=== PATIENT | female | born 1985 | race Asian ===

== ENCOUNTER 2020-11-19 21:03 | Emergency (ER) | payer MEDICAID ==
--- NOTE | 2020-11-19 21:11 | EDM.PDOC ---
ED HPI GENERAL MEDICAL PROBLEM - General Stated Complaint: MEDICAL VIA NORTH Time Seen by Provider: 11/19/20 21:03 Source of Information: Reports: EMS History Limitations: Reports: Altered Mental Status, Physical Impairment - History of Present Illness INITIAL COMMENTS - FREE TEXT/NARRATIVE: 35-year-old female with unknown medical history, presents with according to family 2 days of increased fatigue and unresponsiveness. She was brought in by EMS tonight noncommunicative but responds to voice and pain. She struggles to keep her eyes closed when you try to open her eyes, and she pushes your hands away when removing a hernia belt that she is wearing. She will not attempt to answer questions however. She looks dry but her vitals are stable, O2 sats are normal. EMS checked glucose in route and was 103. Onset: Unknown/Unsure (Apparently she has been slowly getting less responsive for the last several days) Generalized Pain Score (Numeric/FACES): 6 - Related Data Allergies Allergy/AdvReac Type Severity Reaction Status Date / Time No Known Allergies Allergy Verified 11/19/20 22:09 Home Meds: Home Meds Letrozole 2.5 mg PO DAILY 11/19/20 [History] estradioL [Estradiol] 2 mg PO DAILY 11/19/20 [History] metFORMIN [Glucophage] 850 mg PO ASDIRECTED 11/19/20 [History] ED ROS GENERAL - Review of Systems Review Of Systems: See Below (Patient is a cooperative and responsive to get a review of systems) ED EXAM, GENERAL - Physical Exam Exam: See Below Exam Limited By: Physical Impairment General Appearance: Lethargic Eye Exam: Bilateral Eye: PERRL (Pupils are small but equal and reactive) Head: Atraumatic Neck: Supple Respiratory/Chest: Lungs Clear Cardiovascular: Regular Rate, Rhythm. No: Tachycardia GI/Abdominal: Soft, Other (Difficult to say if she is got tenderness to palpation but she does not have any guarding voluntary or involuntary, no signs of trauma to the abdomen or back) Extremities: Normal Inspection Neurological: Inattentive, Unresponsive Skin Exam: Warm, Dry Course - Vital Signs Last Recorded V/S: Last Vital Signs Temp 99.4 F 11/19/20 23:16 Pulse 117 H 11/19/20 23:16 Resp 20 11/19/20 23:16 BP 122/59 L 11/19/20 23:16 Pulse Ox 93 L 11/19/20 23:16 - Orders/Labs/Meds Orders: Active Orders 24 hr Category Date Time Status CORONAVIRUS COVID-19 RALPH [MOLEC] Routine Lab 11/19/20 22:57 Received Labs: Laboratory Tests 11/19/20 11/19/20 11/19/20 Range/Units 21:19 21:19 21:19 WBC 4.8 (4.5-11.0) K/uL RBC 4.52 (3.30-5.50) M/uL Hgb 13.2 (12.0-15.0) g/dL Hct 39.1 (36.0-48.0) % MCV 87 (80-98) fL MCH 29 (27-31) pg MCHC 34 (32-36) % Plt Count 288 (150-400) K/uL Neut % (Auto) 37 (36-66) % Lymph % (Auto) 40 (24-44) % [place] % (Auto) 18 H (2-6) % Eos % (Auto) 2 (2-4) % Baso % (Auto) 4 H (0-1) % Sodium 134 L (140-148) mmol/L Potassium 4.3 (3.6-5.2) mmol/L Chloride 99 L (100-108) mmol/L Carbon Dioxide 23 (21-32) mmol/L Anion Gap 16.3 H (5.0-14.0) mmol/L BUN 12 (7-18) mg/dL Creatinine 1.0 (0.6-1.0) mg/dL Est Cr Clr Drug Dosing TNP Estimated GFR (MDRD) > 60 (>60) Glucose 106 (74-106) mg/dL Lactic Acid 4.8 H (0.4-2.0) mmol/L Calcium 8.6 (8.5-10.1) mg/dL Total Bilirubin 0.6 (0.2-1.0) mg/dL AST 60 H (15-37) U/L ALT 55 (12-78) U/L Alkaline Phosphatase 39 L (46-116) U/L Total Protein 7.3 (6.4-8.2) g/dL Albumin 3.5 (3.4-5.0) g/dL Globulin 3.8 H (2.3-3.5) g/dL Albumin/Globulin Ratio 0.9 L (1.2-2.2) Meds: Medications Discontinued Medications Generic Name Dose Route Start Last Admin Trade Name Artis PRN Reason Stop Dose Admin Sodium Chloride 1,000 mls @ 999 mls/hr 11/19/20 21:05 11/19/20 21:53 Normal Saline IV 11/19/20 22:05 999 mls/hr ONETIME ONE Administration Levetiracetam 500 mg/ Sodium 105 mls @ 400 mls/hr 11/19/20 23:18 11/19/20 23:28 Chloride IV 11/19/20 23:32 400 mls/hr ONETIME ONE Administration Lorazepam Confirm 11/19/20 23:17 11/19/20 23:28 Ativan Administered 11/19/20 23:18 Not Given Dose 2 mg .ROUTE .STK-MED ONE Lorazepam 1 mg 11/19/20 23:18 11/19/20 23:21 Ativan IVPUSH 11/19/20 23:19 1 mg ONETIME ONE Administration - Re-Assessments/Exams Free Text/Narrative Re-Assessment/Exam: 11/19/20 21:10 CBC, CMP, ABGs and lactic acid will be obtained, an IV started and she will be bolused with 1 L of normal saline. We will attempt to get a UA with urine drug screen and a head CT without contrast. 11/19/20 22:[address] was negative, CBC normal CMP basically normal other than mildly elevated AST. Lactic acid 4.8. IV fluid was bolused, she remained lethargic but very responsive to any physical stimulus. Noncommunicative. Discussed her condition with Dr. Hackett, emergency physician at [facility] and he kindly accepted the patient for transfer for neurology evaluation. She may have some type of encephalitis. 11/20/20 01:26 While the patient was being loaded for ground transfer, she had a generalized seizure, bit her lower lip sustaining a small laceration and had a postictal period after the 30 second seizure. She was brought back into the emergency room and given 500 mg of IV Keppra and 1 mg of IV Ativan. We attempted to change her transfer to air but nothing was flying due to weather so urgent ground transfer was arranged. I did discuss the updated condition with the hospitalist in [place]. Departure - Departure Time of Disposition: 23:45 Disposition: DC/Tfer to Other 70 Clinical Impression: Encephalitis Altered mental status, unspecified Qualifiers: Altered mental status type: somnolence Qualified Code(s): R40.0 - Somnolence - Discharge Information Referrals: PCP,None [Primary Care Provider] - Forms: ED Department Discharge Care Plan Goals: Patient will be transferred to [facility] for further evaluation by neurology, presumptive diagnosis being some type of encephalitis. Sepsis Event Note (ED) - Focused Exam Vital Signs: Vital Signs Temp Pulse Resp BP Pulse Ox 11/19/20 23:16 99.4 F 117 H 20 122/59 L 93 L 11/19/20 22:28 78 16 104/67 96 11/19/20 21:46 94 16 97/58 L 11/19/20 21:04 99.6 F 94 14 93/43 L 97 - My Orders Last 24 Hours: My Active Orders 11/19/20 22:57 CORONAVIRUS COVID-19 RALPH [MOLEC] Routine - Assessment/Plan Last 24 Hours: My Active Orders 11/19/20 22:57 CORONAVIRUS COVID-19 RALPH [MOLEC] Routine
[2020-11-19] MEDS: Sodium Chloride 0.9% 1,000 ML IV ONE (21:53)
--- NOTE | 2020-11-19 21:55 | CRLCT ---
INDICATION: Significant decreased responsiveness TECHNIQUE: CT Head without i.v. contrast. COMPARISON: None FINDINGS: CSF space: The ventricles are normal for age. Brain: No evidence of mass, acute infarction or hemorrhage is seen. No mass-effect or midline shift is seen. The brain parenchyma is otherwise normal in appearance with preservation of the barr-white matter junction. Calvarium: The visualized paranasal sinuses are well aerated. The mastoid air cells are clear. The visualized orbits are grossly unremarkable. The calvarium is unremarkable in appearance with no fractures identified. IMPRESSION: 1. No evidence of acute infarction, intracranial hemorrhage, or mass-effect seen. Please note that all CT scans at this facility use dose modulation, iterative reconstruction, and/or weight-based dosing when appropriate to reduce radiation dose to as low as reasonably achievable. Dictated by: Daniel Sutton MD @ 11/19/2020 21:53:54 (Electronically Signed)
[2020-11-19] MEDS: LORazepam 2 MG/ML SDV IVPUSH ONE (23:21)
[2020-11-19] MEDS: LORazepam 2 MG/ML SDV ONE (23:28)
[2020-11-19] MEDS: levETIRAcetam 500 MG in Sodium Chloride 0.9% 100 ML IV ONE (23:28)
== END 2020-11-19 23:48 | disposition other institution (70) ==
LOC: JP.ED 21:03
DX: G04.90 Encephalitis and encephalomyelitis, unspecified (principal); R40.0 Somnolence; Z20.822 Contact with and (suspected) exposure to COVID-19
CPT/HCPCS: 36415; 70450; 80053; 83605; 85025; 96365; 96375; 99285; 99285-25; J1953; J2060; J7030; U0002

== ENCOUNTER 2021-03-17 20:07 | Emergency (ER) | payer MEDICAID ==
[2021-03-17] MEDS ORDERED: levETIRAcetam 500 MG/5 ML SDV ONE (20:35)
[2021-03-17] MEDS ORDERED: levETIRAcetam 250 MG Tab PO SCH (21:00)
--- NOTE | 2021-03-17 21:04 | EDM.PDOC ---
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 She ran out of the medication 2 days ago and has been unable to get it filled, today she was feeling dizzy for a half an hour, lightheaded, became diaphoretic and then fainted. They tried to stand her up and get her to walk but she was unable so they called the ambulance. She did become incontinent but had no seizure activity. She is now feeling much better, vitals are stable. She had some stomach cramps but she now thinks they are her "period cramps". Onset: Sudden Duration: Hour(s): (Within the last hour) Associated Symptoms: Reports: Confusion, Diaphoresis, Syncope. Denies: Chest Pain, Fever/Chills, Nausea/Vomiting - Related Data Allergies Allergy/AdvReac Type Severity Reaction Status Date / Time Cephalosporins Allergy Cannot Verified 03/17/21 20:46 Remember Home Meds: Home Meds Ferrous Sulfate [Iron] 1 tab PO DAILY 03/17/21 [History] Melatonin 3 mg PO DAILY 03/17/21 [History] lamoTRIgine [Lamotrigine] 25 mg PO DAILY 03/17/21 [History] levETIRAcetam [Levetiracetam] 1,000 mg PO DAILY 03/17/21 [History] Past Medical History - Past Health History Medical/Surgical History: Denies Medical/Surgical History Social & Family History - Family History Family Medical History: No Pertinent Family History - Caffeine Use Caffeine Use: Reports: None ED ROS GENERAL - Review of Systems Review Of Systems: See Below Constitutional: Reports: Malaise. Denies: Fever, Chills HEENT: Denies: Vision Change Respiratory: Denies: Shortness of Breath Cardiovascular: Denies: Chest Pain GI/Abdominal: Reports: Abdominal Pain (Mild cramping). Denies: Nausea, Vomiting Skin: Reports: Diaphoresis Neurological: Reports: Syncope. Denies: Headache - Physical Exam Exam: See Below Exam Limited By: No Limitations General Appearance: Alert, No Apparent Distress Eye Exam: Bilateral Eye: Normal Inspection, PERRL Head Exam: Atraumatic Neck: Supple, Non-Tender Respiratory/Chest: Lungs Clear Cardiovascular: Regular Rate, Rhythm, Other (Patient was initially tachycardic, normalized by discharge) Neuro Exam (Abbreviated): Alert, Oriented, No Motor/Sensory Deficits Extremities: Normal Inspection Psychiatric: Normal Affect, Normal Mood Skin Exam: Warm, Dry Course - Vital Signs Last Recorded V/S: Last Vital Signs Temp 98.7 F 03/17/21 20:41 Pulse 100 03/17/21 20:54 Resp 18 03/17/21 20:54 BP 105/68 03/17/21 20:54 Pulse Ox 97 03/17/21 20:54 - Orders/Labs/Meds Labs: Laboratory Tests 03/17/21 03/17/21 Range/Units 20:43 20:43 WBC 5.8 (4.5-11.0) K/uL RBC 4.72 (3.30-5.50) M/uL Hgb 13.5 (12.0-15.0) g/dL Hct 40.8 (36.0-48.0) % MCV 86 (80-98) fL MCH 29 (27-31) pg MCHC 33 (32-36) % Plt Count 322 (150-400) K/uL Neut % (Auto) 54 (36-66) % Lymph % (Auto) 37 (24-44) % [place] % (Auto) 7 H (2-6) % Eos % (Auto) 2 (2-4) % Baso % (Auto) 0 (0-1) % Sodium 140 (140-148) mmol/L Potassium 4.1 (3.6-5.2) mmol/L Chloride 100 (100-108) mmol/L Carbon Dioxide 21 (21-32) mmol/L Anion Gap 18.7 H (5.0-14.0) mmol/L BUN 15 (7-18) mg/dL Creatinine 0.9 (0.6-1.0) mg/dL Est Cr Clr Drug Dosing 67.09 mL/min Estimated GFR (MDRD) > 60 (>60) Glucose 71 L (74-106) mg/dL Calcium 9.2 (8.5-10.1) mg/dL Meds: Medications Discontinued Medications Generic Name Dose Route Start Last Admin Trade Name Artis PRN Reason Stop Dose Admin Levetiracetam 1,000 mg 03/17/21 21:00 03/17/21 21:17 Levetiracetam 250 Mg Tab PO 1,000 mg BID ISSAC Administration - Re-Assessments/Exams Free Text/Narrative Re-Assessment/Exam: 03/17/21 21:03 Patient was given 1000 mg of oral Keppra, and a prescription for 1000 mg twice daily for the next 10 days. CBC and BMP were obtained, CBC was normal, BMP is pending. 03/17/21 21:11 BMP is normal, patient remained stable. She will be discharged with a diagnosis of syncope. Departure - Departure Time of Disposition: 21:23 Disposition: Home, Self-Care 01 Clinical Impression: Vasovagal syncope - Discharge Information Instructions: Syncope, [id number] Referrals: PCP,None [Primary Care Provider] - Forms: ED Department Discharge Care Plan Goals: Restart your medication tomorrow as prescribed, stay hydrated, and return an ytime if symptoms recur or you develop other concerns. Sepsis Event Note (ED) - Evaluation Sepsis Screening Result: No Definite Risk - Focused Exam Vital Signs: Vital Signs Temp Pulse Resp BP Pulse Ox 03/17/21 20:54 100 18 105/68 97 03/17/21 20:41 98.7 F 129 H 17 129/78 94 L 03/17/21 20:18 98.7 F 129 H 17 129/78 94 L
== END 2021-03-17 21:33 | disposition home or self-care (01) ==
LOC: JP.ED 20:07
DX: R55 Syncope and collapse (principal); Z88.1 Allergy status to other antibiotic agents; Z79.899 Other long term (current) drug therapy
CPT/HCPCS: 36415; 80048; 85025; 99283; 99284; A9270

== ENCOUNTER 2021-04-17 17:02 | Emergency (ER) | payer MEDICAID ==
[2021-04-17] MEDS ORDERED: levETIRAcetam 250 MG Tab PO STA (18:18)
--- NOTE | 2021-04-17 18:21 | EDM.PDOC ---
ED HPI GENERAL MEDICAL PROBLEM - General Chief Complaint: Neuro Symptoms/Deficits Stated Complaint: SEIZURE Time Seen by Provider: 04/17/21 17:39 Source of Information: Reports: Patient, Family, Metal [employer], RN Notes Reviewed History Limitations: Reports: Language Barrier - History of Present Illness INITIAL COMMENTS - FREE TEXT/NARRATIVE: 35-year-old female presents emergency department today via EMS services she has a known seizure disorder is on lamotrigine and Keppra neurology has been weaning her off the Keppra and increasing the dose of lamotrigine unfortunately she had a breakthrough seizure today did not injure herself she had a short postictal period but now is back to baseline by the time she arrives emergency department - Related Data Allergies Allergy/AdvReac Type Severity Reaction Status Date / Time Cephalosporins Allergy Cannot Verified 04/17/21 17:17 Remember Home Meds: Home Meds Ferrous Sulfate [Iron] 1 tab PO DAILY 03/17/21 [History] Melatonin 3 mg PO DAILY 03/17/21 [History] lamoTRIgine [Lamotrigine] 25 mg PO DAILY 03/17/21 [History] levETIRAcetam [Levetiracetam] 1,000 mg PO DAILY 03/17/21 [History] Past Medical History [employer] History: Reports: Endometriosis Neurological History: Reports: Seizure, Other (See Below) Other Neuro History: meningoencephalitis; acute ancephalopathy - Infectious Disease History Infectious Disease History: Reports: Meningitis - Past Surgical History Other Female Surgeries/Procedures: had some uterine surgery in [place], unsure what Social & Family History - Family History Family Medical History: No Pertinent Family History - Tobacco Use Tobacco Use Status *Q: Never Tobacco User - Caffeine Use Caffeine Use: Reports: None ED ROS GENERAL - Review of Systems Review Of Systems: See Below Constitutional: Reports: No Symptoms HEENT: Reports: No Symptoms Respiratory: Reports: No Symptoms Cardiovascular: Reports: No Symptoms GI/Abdominal: Reports: No Symptoms Neurological: Reports: Seizure ED EXAM, NEURO - Physical Exam Exam: See Below Exam Limited By: No Limitations General Appearance: Alert, WD/WN, No Apparent Distress Respiratory/Chest: No Respiratory Distress, Lungs Clear, Normal Breath Sounds, No Accessory Muscle Use, Chest Non-Tender Cardiovascular: Regular Rate, Rhythm, No Murmur Neurological: Alert, Normal Mood/Affect, No Motor/Sensory Deficits Course - Vital Signs Last Recorded V/S: Last Vital Signs Temp 98.2 F 04/17/21 17:15 Pulse 112 H 04/17/21 17:15 Resp 17 04/17/21 17:15 BP 132/88 04/17/21 17:15 Pulse Ox 98 04/17/21 17:15 - Orders/Labs/Meds Orders: Active Orders 24 hr Category Date Time Status levETIRAcetam [Keppra] Med 04/17/21 18:18 Stat 500 mg PO NOW STA Medication Orders Levetiracetam (Levetiracetam 250 Mg Tab) 500 mg PO NOW STA Stop: 04/17/21 18:19 Meds: Medications Generic Name Dose Route Start Last Admin Trade Name Artis PRN Reason Stop Dose Admin Levetiracetam 500 mg 04/17/21 18:18 Levetiracetam 250 Mg Tab PO 04/17/21 18:19 NOW STA Departure - Departure Time of Disposition: 18:21 Disposition: Home, Self-Care 01 Condition: Fair Clinical Impression: Seizure - Discharge Information Instructions: Seizure, Adult, [id number] Referrals: PCP,None [Primary Care Provider] - Additional Instructions: Your new refill for Keppra has been sent to [facility] [place], please contact neurology office at [facility] for further follow-up Sepsis Event Note (ED) - Evaluation Sepsis Screening Result: No Definite Risk - Focused Exam Vital Signs: Vital Signs Temp Pulse Resp BP Pulse Ox 04/17/21 17:15 98.2 F 112 H 17 132/88 98 04/17/21 17:09 98.2 F 112 H 17 132/88 98 - My Orders Last 24 Hours: My Active Orders 04/17/21 18:18 levETIRAcetam [Keppra] 500 mg PO NOW STA - Assessment/Plan Last 24 Hours: My Active Orders 04/17/21 18:18 levETIRAcetam [Keppra] 500 mg PO NOW STA Plan: Assessment Acuity = acute Site and laterality = breakthrough seizure Etiology = unknown Manifestations = none Location of injury = Home Lab values = none Plan Call discussed case with Dr. [place] from neurology at 1800 recommended continuing on the lamotrigine dose but increased to Keppra back to 500 mg p.o. twice daily he did fax a new refill for this medication to [facility] pharmacy she will contact neurology's office for further follow-up This note was dictated using [employer]UR[employer] voice recognition software please call with any questions on syntax or grammar.
== END 2021-04-17 18:55 | disposition home or self-care (01) ==
LOC: JP.ED 17:02
DX: G40.909 Epilepsy, unspecified, not intractable, without status epilepticus (principal); Z88.1 Allergy status to other antibiotic agents; Z79.899 Other long term (current) drug therapy
CPT/HCPCS: 99284; A9270

== ENCOUNTER 2021-08-26 21:07 | Emergency (ER) | payer MEDICAID ==
--- NOTE | 2021-08-26 21:55 | EDM.PDOC ---
ED HPI GENERAL MEDICAL PROBLEM - General Chief Complaint: ENT Problem Stated Complaint: SORE THROAT, COUGH Time Seen by Provider: 08/26/21 21:53 Source of Information: Reports: Patient History Limitations: Reports: No Limitations - History of Present Illness INITIAL COMMENTS - FREE TEXT/NARRATIVE: [id number] female who presents to the ED for evaluation of sore throat. Her symptoms started 5 days ago and she talked to a friend of hers who is a retired physician who prescribed an antibiotic that she has been on for 3 days. She is not had any significant improvement in her symptoms prompting her to come in to be evaluated. She has had a bit of an irritated cough and at times has some blood-tinged sputum when she coughs. She does not had any fever or chills. She does not have any significant difficulty with swallowing. She has not had any shortness of breath or chest pain. She was seen by her neurologist in [place] today for her seizures that started in November 2020. She asked the neurologist about her sore throat but he referred her back to her primary doctor as he did not feel comfortable evaluating her for this. Hence the reason she is now in the ER. Throat Pain Score (Numeric/FACES): 10 - Related Data Home Meds: Home Meds Ferrous Sulfate [Iron] 1 tab PO DAILY 03/17/21 [History] Melatonin 3 mg PO DAILY 03/17/21 [History] lamoTRIgine [Lamotrigine] 200 mg PO BID 03/17/21 [History] Amoxicillin 500 mg PO BID 08/26/21 [History] traZODone 100 mg PO BEDTIME 08/26/21 [History] Past Medical History - Past Health History Medical/Surgical History: Denies Medical/Surgical History [employer] WALKER History: Reports: Endometriosis Neurological History: Reports: Seizure, Other (See Below) Other Neuro History: meningoencephalitis; acute ancephalopathy - Infectious Disease History Infectious Disease History: Reports: Meningitis - Past Surgical History Other Female Surgeries/Procedures: had some uterine surgery in [place], unsure what Social & Family History - Family History Family Medical History: No Pertinent Family History - Caffeine Use Caffeine Use: Reports: None ED ROS ENT - Review of Systems Review Of Systems: See Below Constitutional: Reports: No Symptoms HEENT: Reports: Throat Pain, Throat Swelling Respiratory: Reports: Cough (Sometimes expectorating blood-tinged sputum) Cardiovascular: Reports: No Symptoms Endocrine: Reports: No Symptoms GI/Abdominal: Reports: No Symptoms : Reports: No Symptoms Musculoskeletal: Reports: No Symptoms Skin: Reports: No Symptoms Neurological: Reports: No Symptoms Psychiatric: Reports: No Symptoms ED EXAM, ENT - Physical Exam Exam: See Below Exam Limited By: No Limitations General Appearance: Alert, No Apparent Distress Eye Exam: Bilateral Eye: EOMI, PERRL Nose: Nasal Discharge (Dried discharge in the nares), Nasal Swelling. No: Clear Rhinorrhea Mouth/Throat: Normal Gums, Normal Lips, Normal Teeth, Pharyngeal Erythema, Throat Pain, Tonsillar Erythema, Tonsillar Swelling. No: Tongue Swelling, Tonsillar Exudates, Uvular Deviation, Uvular Edema Head: Atraumatic, Normocephalic Neck: Normal Inspection, Supple, Non-Tender, Full Range of Motion. No: Lymphadenopathy (R), Lymphadenopathy (L) Respiratory/Chest: No Respiratory Distress, Lungs Clear, Normal Breath Sounds, No Accessory Muscle Use Cardiovascular: Normal Peripheral Pulses, Regular Rate, Rhythm, No Murmur Neurological: Alert, Oriented, Normal Cognition, No Motor/Sensory Deficits Psychiatric: Normal Affect, Normal Mood Skin: Warm, Dry, Intact, Normal Color, No Rash Course - Vital Signs Last Recorded V/S: Last Vital Signs Temp 36.3 C 08/26/21 21:58 Pulse 70 08/26/21 21:58 Resp 14 08/26/21 21:58 BP 121/87 08/26/21 21:58 Pulse Ox 97 08/26/21 21:58 - Orders/Labs/Meds Labs: Laboratory Tests 08/26/21 08/26/21 08/26/21 Range/Units 22:11 22:11 22:14 WBC 7.0 (4.5-11.0) K/uL RBC 4.54 (3.30-5.50) M/uL Hgb 13.4 (12.0-15.0) g/dL Hct 39.1 (36.0-48.0) % MCV 86 (80-98) fL MCH 30 (27-31) pg MCHC 34 (32-36) % Plt Count 334 (150-400) K/uL Neut % (Auto) 60.5 (36-66) % Lymph % (Auto) 31.0 (24-44) % [place] % (Auto) 6.0 (2-6) % Eos % (Auto) 2.1 (2-4) % Baso % (Auto) 0.4 (0-1) % C-Reactive Protein 0.07 (0.0-0.3) mg/dL Monoscreen Negative (NEGATIVE) SARS CoV-2 RNA Rapid RALPH 08/26/21 Range/Units 22:18 WBC (4.5-11.0) K/uL RBC (3.30-5.50) M/uL Hgb (12.0-15.0) g/dL Hct (36.0-48.0) % MCV (80-98) fL MCH (27-31) pg MCHC (32-36) % Plt Count (150-400) K/uL Neut % (Auto) (36-66) % Lymph % (Auto) (24-44) % [place] % (Auto) (2-6) % Eos % (Auto) (2-4) % Baso % (Auto) (0-1) % C-Reactive Protein (0.0-0.3) mg/dL Monoscreen (NEGATIVE) SARS CoV-2 RNA Rapid RALPH Negative Meds: Medications Discontinued Medications Generic Name Dose Route Start Last Admin Trade Name Freq PRN Reason Stop Dose Admin Lidocaine HCl 15 ml 08/26/21 23:11 Lidocaine 2% Viscous Solution 15 Ml Cup PO 08/26/21 23:12 ONETIME ONE - Re-Assessments/Exams Free Text/Narrative Re-Assessment/Exam: 08/26/21 23:14 the patient's labs. She is Covid negative. Her Monospot was negative. Her CBC is normal with a leukocyte count of 7.0 and normal diffe rential, hemoglobin of 13.4, hematocrit of 39.1 and a platelet count of 334,000. This is likely a viral pharyngitis. We will try viscous lidocaine to see if this gives her some symptomatic relief. Departure - Departure Time of Disposition: 23:19 Disposition: Home, Self-Care 01 Clinical Impression: Viral pharyngitis - Discharge Information Instructions: Pharyngitis, [id number] Referrals: PCP,Unknown [Primary Care Provider] - Forms: ED Department Discharge Care Plan Goals: Your work-up today shows that your throat swelling and soreness is due to a virus. The antibiotics that you were given will not treat this. You may use the viscous lidocaine for symptomatic relief be able to eat and sleep. I am providing you with an additional prescription for more of the same to fill in the morning at the pharmacy. This usually takes about a week to 10 days to clear on its own. Sepsis Event Note (ED) - Focused Exam Vital Signs: Vital Signs Temp Pulse Resp BP Pulse Ox 08/26/21 21:58 36.3 C 70 14 121/87 97 - Problem List & Annotations (1) Viral pharyngitis SNOMED Code(s): 6367825 Code(s): J02.9 - ACUTE PHARYNGITIS, UNSPECIFIED Status: Acute Priority: Medium Current Visit: Yes - Problem List Review Problem List Initiated/Reviewed/Updated: Yes
[2021-08-26] MEDS ORDERED: Lidocaine 2% Viscous Solution 15 ML Cup PO ONE (23:11)
== END 2021-08-27 00:03 | disposition home or self-care (01) ==
LOC: JP.ED 21:07
DX: J02.8 Acute pharyngitis due to other specified organisms (principal); Z20.822 Contact with and (suspected) exposure to COVID-19
CPT/HCPCS: 36415; 85025; 86140; 86308; 87635; 99283; A9270; U0002

== ENCOUNTER 2022-07-07 16:40 | Emergency (ER) | payer MEDICAID | END 2022-07-07 19:11 | disposition home or self-care (01) | LOC: JP.ED 16:40 | DX: U07.1 COVID-19 (principal) | CPT/HCPCS: 87081; 87880-QW; 99283; U0002 ==

== ENCOUNTER 2022-08-12 11:31 | Emergency (ER) | payer MEDICAID ==
[~2022-08-12 11:31] MED LIST: Calcium Gluconate 10% 1 GM/10 ML SDV IVPUSH ONE
[2022-09-06 15:25] LABS: ESTIMATED GFR 99 mL/min (>60)
== END 2022-08-13 02:10 | disposition home or self-care (01) ==
LOC: JP.ED 11:31
DX: G40.211 Localization-related (focal) (partial) symptomatic epilepsy and epileptic syndromes with complex partial seizures, intractable, with status epilepticus (principal); E87.6 Hypokalemia
CPT/HCPCS: 36415; 80053; 80175; 81001; 81025; 82140; 83605; 85025; 86140; 87635; 96374; 99283; J0610; U0002

== ENCOUNTER 2024-06-17 20:00 | Emergency (ER) | payer MEDICAID | END 2024-06-17 21:57 | disposition home or self-care (01) | LOC: JP.ED 20:00 | DX: J06.9 Acute upper respiratory infection, unspecified (principal); Z79.899 Other long term (current) drug therapy | CPT/HCPCS: 87651-QW; 99283; U0002 ==

== ENCOUNTER 2025-01-30 08:57 | Day surgery (SDC) | payer MEDICAID ==
[~2025-01-30 08:57] MED LIST changes: +Bupivacaine 0.5% 30 ML SDV ONE; -Calcium Gluconate 10% 1 GM/10 ML SDV IVPUSH ONE
[2025-01-30] MEDS ORDERED: Midazolam 1 MG/ML 2 ML SDV ONE (09:09)
[2025-01-30] MEDS ORDERED: fentaNYL 100 MCG/2 ML SDV ONE (09:09)
[2025-01-30] MEDS ORDERED: Propofol 200 MG/20 ML SDV ONE ×2 (09:09→09:30)
[2025-01-30] MEDS: Lactated Ringers 1,000 ML IV SCH (10:18)
[2025-01-30] MEDS: Bupivacaine 0.5%/EPINEPHrine 1:200,000 50 ML MDV ONE (10:28)
== END 2025-01-30 12:32 | disposition home or self-care (01) ==
LOC: JP.SDS 08:57
PROVIDERS: ATTEND Surgery
DX: K64.4 Residual hemorrhoidal skin tags (principal)
CPT/HCPCS: 45398; 81025; J2250; J2704; J3010; J3490; J7120; J0665